=== PATIENT | female | born 1985 | race Asian ===

== ENCOUNTER 2016-05-22 11:05 | Emergency (ER) | payer OTHER ==
[~2016-05-22] VITALS: Ht 162.6 cm; Wt 59.0 kg
[2016-05-22 11:18] VITALS: BP 124/74
--- NOTE | 2016-05-22 11:57 | NUR ---
30/F TO ED WITH C/O LOWER BACK PAIN X2 DAYS. STATES SHE STRAINED BACK. DENIES TRAUMA. PAIN 08/26. LUNGS CLEAR BILAT. HR EVEN AND REGULAR. AAOX4. VSS. NO SIGNS OF DISTRESS.
[2016-05-22] MEDS ORDERED: KETOROLAC 60 MG/2 ML VIAL IM ONE (12:40)
--- NOTE | 2016-05-22 13:05 | NUR ---
Patient appears to be resting comfortably in bed. Vital Signs within normal limits. Respirations even and unlabored.
[2016-05-22 14:19] VITALS: BP 128/77
--- NOTE | 2016-05-22 14:20 | NUR ---
Patient discharged with v/s stable. Written and verbal after care instructions given and explained. Patient alert, oriented and verbalized understanding of instructions. Ambulatory with steady gait. All questions addressed prior to discharge. ID band removed. Patient advised to follow up with PMD. Rx of MOTRIN, NORCO, AND CIPRO given. Patient educated on indication of medication including possible reaction and side effects. Opportunity to ask questions provided and answered.
== END 2016-05-22 14:20 | disposition home or self-care (01) ==
LOC: MED 11:14
DX: M54.5 Low back pain (principal); N39.0 Urinary tract infection, site not specified
CPT/HCPCS: 81002; 81025; 96372; 99283; J1885

== ENCOUNTER 2020-04-05 12:03 | Emergency (ER) | payer OTHER ==
[~2020-04-05] VITALS: Ht 162.6 cm; Wt 68.0 kg
[2020-04-05 12:12] VITALS: BP 133/97
--- NOTE | 2020-04-05 12:18 | NUR ---
34YO F BIB MOTHER C/O LOW BACK PAIN UPON WAKING UP THIS MORNING. DENIES ANY INJURY OT TRAUMA TO AREA. IN ED, PT ON WHEELCHAIR. VSS. PAIN SCALE 6/10 SITTING. CLEAR BREATH SOUNDS. NORMAL RATE REGULAR RHYTHM. BOWEL SOUNDS ACTIVE ON ALL AREAS. 5/5 UPPER EXTREMITY STRENGTH, WITH DECREASED LOWER EXTREMITY STRENGTH. PT SITTING ON WHEELCHAIR WAITING IN LOBBY. ERMD MADE AWARE OF PT STATUS. PMH: NONE NKA
--- NOTE | 2020-04-05 14:05 | NUR ---
PREG TEST DONE PRIOR TO CT. RESULT CAME OUT NEGATIVE.
[2020-04-05] MEDS ORDERED: KETOROLAC 60 MG/2 ML VIAL IM ONE (15:25)
[2020-04-05 16:40] VITALS: BP 122/67
--- NOTE | 2020-04-05 16:42 | NUR ---
Patient discharged with v/s stable. Written and verbal after care instructions given and explained. Patient alert, oriented and verbalized understanding of instructions. Ambulatory with steady gait. All questions addressed prior to discharge. ID band removed. Patient advised to follow up with PMD. Rx of TRAMADOL, ROBAXIN given. Patient educated on indication of medication including possible reaction and side effects. Opportunity to ask questions provided and answered.
== END 2020-04-05 16:24 | disposition home or self-care (01) ==
LOC: MED 12:03
DX: S72.142A Displaced intertrochanteric fracture of left femur, initial encounter for closed fracture (principal); X58.XXXA Exposure to other specified factors, initial encounter; Y93.89 Activity, other specified; Y92.89 Other specified places as the place of occurrence of the external cause; Y99.8 Other external cause status
CPT/HCPCS: 72131; 96372; 99284; J1885